=== PATIENT | female | born 1990 | race Caucasian/White ===

== ENCOUNTER 2016-07-07 09:00 | Inpatient (IN) | payer OTHER ==
[~2016-07-07] VITALS: Ht 182.8 cm; Wt 90.7 kg
[2016-07-07 00:45] VITALS: BP 102/51
[~2016-07-07 09:00] MED LIST: ADDERALL20 MG PO; ALBUTEROL0.09 MG/A2 IH; ALPRAZOLAM2 MG PO; ANAPROX DS550 MG PO; AUGMENTIN 875 M1 TAB PO; BIAXIN500 MG PO; BIRTH CONTROL1 EAC1 PO; CIPRODEX 0.3%-7.5 ML OT; CLARITIN10 MG PO; EES400 MG PO; FLAGYL500 MG PO; IBU-6600 MG PO; IBU-8800 MG PO; LEVAQUIN 500 MG PO; MACROBID100 M1 PO; MEDROL DOSEPAK4 MG PO; MOTRIN800 MG PO; NKHM; PRENATAL1 TA1 PO; PROVENTIL0.09 MG/AC IH; TRIMOX500 MG PO; VIBRAMYCIN100 MG PO; ZITHROMAX Z PA250 MG PO; ZOFRAN ODT4 MG SL; ZYRTEC-D 12HR 51 TER PO
[2016-07-07 09:03] VITALS: BP 129/75
[2016-07-07 09:46] LABS: HEMATOCRIT 40.6 % (37.0-47.0); HEMOGLOBIN 13.6 g/dl (12.0-16.0); MEAN CORPUSCULAR HGB 31.5 pg (27.0-31.0); MEAN CORPUSCULAR HGB CONC 33.5 g/dl (33.0-37.0); MEAN PLATELET VOLUME 9.9 fl (9.6-12.3); PLATELET COUNT AUTOMATED 248 10*3/uL (130-400); RED BLOOD COUNT 4.32 10*6/uL (4.10-5.10); RED CELL DISTRI WIDTH 11.9 % (0-14.5); WHITE BLOOD COUNT 18.7 10*3/uL (4.8-10.8)
[2016-07-07 09:57] LABS: BILIRUBIN 1+ (NEGATIVE); BLOOD 3+ (NEGATIVE); CLARITY CLOUDY (CLEAR); COLOR YELLOW (YELLOW); GLUCOSE NEGATIVE (NEGATIVE); KETONE NEGATIVE (NEGATIVE); LEUKO ESTERASE 2+ (NEGATIVE); NITRITE POSITIVE (NEGATIVE); PH 5.5 (5.0-9.0); PROTEIN 2+ (NEGATIVE)
[2016-07-07 10:02] LABS: ALBUMIN 3.5 gm/dl (3.1-4.5); ALKALINE PHOSPHATASE 62 U/L (45-117); BILIRUBIN, TOTAL 0.7 mg/dl (0.2-1.0); BUN 12 mg/dl (7-24); CARBON DIOXIDE 28 mmol/L (21-32); CHLORIDE 107 mmol/L (98-107); EST GLOM FILT AFRICAN AMERICAN > 60 ml/min; GLUCOSE 98 mg/dL (65-99); POTASSIUM 3.7 mmol/L (3.5-5.1); SGOT/AST 13 IU/L (3-35); SGPT/ALT 21 U/L (12-78); SODIUM 140 mmol/L (136-145); TOTAL PROTEIN 7.5 gm/dL (6.4-8.2)
[2016-07-07 10:03] LABS: LYMPHOCYTE # 1.7 10*3/uL (1.3-4.4); MONOCYTE # 0.4 10*3/uL (0.1-1.0); NEUTROPHIL # 16.6 10*3/uL (2.3-7.9); NEUTROPHILS 89 % (47-73); TOTAL CELLS COUNTED 100 #CELLS
[2016-07-07 10:04] LABS: PLATELET SUFFICIENCY NORMAL (NORMAL)
[2016-07-07 10:12] LABS: BACTERIA TRACE; URINE REFLEX COMMENT YES (NO); WBC 51-100 wbc/hpf (0-5)
[2016-07-07] MEDS ORDERED: ZOFRAN4 MG PO (12:31)
[2016-07-07] MEDS ORDERED: MACROBID100 M1 PO (12:31)
[2016-07-07 22:23] VITALS: BP 105/60
[2016-07-07 23:04] LABS: HEMOGLOBIN 12.5 g/dl (12.0-16.0); MEAN CELL VOLUME 94.9 fl (81.0-99.0); MEAN CORPUSCULAR HGB 32.1 pg (27.0-31.0); MEAN CORPUSCULAR HGB CONC 33.8 g/dl (33.0-37.0); MEAN PLATELET VOLUME 10.1 fl (9.6-12.3); PLATELET COUNT AUTOMATED 248 10*3/uL (130-400); RED CELL DISTRI WIDTH 12.1 % (0-14.5); WHITE BLOOD COUNT 16.1 10*3/uL (4.8-10.8)
[2016-07-07 23:19] LABS: ALBUMIN 3.5 gm/dl (3.1-4.5); ALKALINE PHOSPHATASE 55 U/L (45-117); BILIRUBIN, TOTAL 0.6 mg/dl (0.2-1.0); BUN 11 mg/dl (7-24); CARBON DIOXIDE 26 mmol/L (21-32); CHLORIDE 106 mmol/L (98-107); EST GLOM FILT AFRICAN AMERICAN > 60 ml/min; GLUCOSE 89 mg/dL (65-99); POTASSIUM 3.8 mmol/L (3.5-5.1); SGOT/AST 11 IU/L (3-35); SGPT/ALT 17 U/L (12-78); SODIUM 141 mmol/L (136-145); TOTAL PROTEIN 6.8 gm/dL (6.4-8.2)
[2016-07-07 23:28] LABS: EOSINOPHIL # 0.3 10*3/uL (0-0.4); EOSINOPHILS 2 % (1-4); LYMPHOCYTE # 3.2 10*3/uL (1.3-4.4); MONOCYTE # 0.8 10*3/uL (0.1-1.0); NEUTROPHIL # 11.8 10*3/uL (2.3-7.9); NEUTROPHILS 73 % (47-73); TOTAL CELLS COUNTED 100 #CELLS
[2016-07-07 23:29] LABS: PLATELET SUFFICIENCY NORMAL (NORMAL)
[2016-07-08 00:45] VITALS: BP 102/51
[2016-07-08 07:32] LABS: BASO % 0.2 % (0.0-1.0); EOS # 0.1 10*3/uL (0.0-0.4); HEMATOCRIT 34.4 % (37.0-47.0); HEMOGLOBIN 11.4 g/dl (12.0-16.0); IG # 0.1 10*3/uL (0.0-0.1); LYMPH # 1.9 10*3/uL (1.3-4.4); LYMPH % 15.5 % (27.0-41.0); MEAN CELL VOLUME 96.6 fl (81.0-99.0); MEAN CORPUSCULAR HGB CONC 33.1 g/dl (33.0-37.0); MEAN PLATELET VOLUME 10.6 fl (9.6-12.3); MONO # 1.1 10*3/uL (0.1-1.0); MONO % 8.9 % (3.0-9.0); PLATELET COUNT AUTOMATED 244 10*3/uL (130-400); RED BLOOD COUNT 3.56 10*6/uL (4.10-5.10); RED CELL DISTRI WIDTH 12.1 % (0-14.5); WHITE BLOOD COUNT 12.2 10*3/uL (4.8-10.8)
[2016-07-08 07:56] LABS: ALBUMIN 2.9 gm/dl (3.1-4.5); ALKALINE PHOSPHATASE 50 U/L (45-117); BILIRUBIN, TOTAL 0.7 mg/dl (0.2-1.0); BUN 11 mg/dl (7-24); CARBON DIOXIDE 26 mmol/L (21-32); CHLORIDE 111 mmol/L (98-107); CHOLESTEROL 92 mg/dL (<200); EST GLOM FILT AFRICAN AMERICAN > 60 ml/min; GLUCOSE 78 mg/dL (65-99); HDL CHOLESTEROL 27 mg/dl (40-60); LDL CHOLESTEROL 54 mg/dL (9-159); PHOSPHOROUS 3.1 mg/dL (2.5-4.9); POTASSIUM 3.6 mmol/L (3.5-5.1); SGOT/AST 10 IU/L (3-35); SGPT/ALT 17 U/L (12-78); SODIUM 142 mmol/L (136-145); TOTAL PROTEIN 6.1 gm/dL (6.4-8.2); TRIGLYCERIDES 53 mg/dl (<150); VLDL CHOLESTEROL 11 mg/dL (6-40)
[2016-07-08 08:00] VITALS: BP 102/58
[2016-07-08 08:01] LABS: PROTHROMBIN TIME 10.7 SECONDS (9.0-12.4)
[2016-07-08 08:07] LABS: FOLIC ACID 5.79 ng/mL (>5.38); VITAMIN D, 25-HYDROXY 10.4 ng/mL (30-100)
[2016-07-08 12:00] VITALS: BP 103/65
[2016-07-08 16:00] VITALS: BP 113/55
[2016-07-08 20:00] VITALS: BP 110/50
[2016-07-09] VITALS: BP 108/52
[2016-07-09 06:20] LABS: BASO % 0.4 % (0.0-1.0); EOS # 0.1 10*3/uL (0.0-0.4); EOS % 1.3 % (1.0-4.0); HEMATOCRIT 33.2 % (37.0-47.0); HEMOGLOBIN 10.9 g/dl (12.0-16.0); LYMPH # 2.7 10*3/uL (1.3-4.4); LYMPH % 31.6 % (27.0-41.0); MEAN CELL VOLUME 96.2 fl (81.0-99.0); MEAN CORPUSCULAR HGB 31.6 pg (27.0-31.0); MEAN CORPUSCULAR HGB CONC 32.8 g/dl (33.0-37.0); MEAN PLATELET VOLUME 10.8 fl (9.6-12.3); MONO # 0.9 10*3/uL (0.1-1.0); MONO % 10.5 % (3.0-9.0); NEUT # 4.7 10*3/uL (2.3-7.9); NEUT % 55.7 % (47.0-73.0); PLATELET COUNT AUTOMATED 228 10*3/uL (130-400); RED BLOOD COUNT 3.45 10*6/uL (4.10-5.10); RED CELL DISTRI WIDTH 12.1 % (0-14.5); WHITE BLOOD COUNT 8.5 10*3/uL (4.8-10.8)
[2016-07-09 06:34] LABS: BUN 8 mg/dl (7-24); CARBON DIOXIDE 23 mmol/L (21-32); CHLORIDE 113 mmol/L (98-107); EST GLOM FILT AFRICAN AMERICAN > 60 ml/min; GLUCOSE 84 mg/dL (65-99); POTASSIUM 3.9 mmol/L (3.5-5.1); SODIUM 142 mmol/L (136-145)
[2016-07-09 08:00] VITALS: BP 108/64
[2016-07-09 12:00] VITALS: BP 110/62
[2016-07-09 16:00] VITALS: BP 115/54
[2016-07-09 20:00] VITALS: BP 110/52
[2016-07-10] VITALS: BP 114/74
[2016-07-10 08:00] VITALS: BP 108/60
[2016-07-10 12:00] VITALS: BP 104/50
[2016-07-10] MEDS ORDERED: VITAMIN D5000 I3 PO (13:51)
[2016-07-10] MEDS ORDERED: AMINOPHYLLIN200 MG PO (13:51)
== END 2016-07-10 15:19 | disposition home or self-care (01) | DRG 872 ==
LOC: ED 09:00 → EDHOLD 12:26 → ED 12:43 → 5E 22:44 → EDHOLD 22:44 → 5E 23:29
PROVIDERS: Family Medicine; Internal Medicine; Nurse Practitioner Family
DX: A41.9 Sepsis, unspecified organism (principal); E44.0 Moderate protein-calorie malnutrition; N39.0 Urinary tract infection, site not specified; N12 Tubulo-interstitial nephritis, not specified as acute or chronic; F32.9 Major depressive disorder, single episode, unspecified; N73.9 Female pelvic inflammatory disease, unspecified; E86.0 Dehydration; R31.9 Hematuria, unspecified; E56.9 Vitamin deficiency, unspecified; Z68.27 Body mass index [BMI] 27.0-27.9, adult

== ENCOUNTER 2017-04-13 16:34 | Emergency (ER) | payer OTHER ==
[~2017-04-13] VITALS: Ht 185.4 cm; Wt 77.1 kg
[~2017-04-13 16:34] MED LIST changes: +AMINOPHYLLIN200 MG PO; +VITAMIN D5000 I3 PO; +ZOFRAN4 MG PO
[2017-04-13] MEDS ORDERED: NAPROSYN500 MG PO (16:55)
== END 2017-04-13 18:21 | disposition home or self-care (01) ==
LOC: ED 16:34
DX: S92.412A Displaced fracture of proximal phalanx of left great toe, initial encounter for closed fracture (principal); R03.0 Elevated blood-pressure reading, without diagnosis of hypertension; F17.200 Nicotine dependence, unspecified, uncomplicated; Z79.899 Other long term (current) drug therapy; W22.8XXA Striking against or struck by other objects, initial encounter; Y93.89 Activity, other specified; Y92.69 Other specified industrial and construction area as the place of occurrence of the external cause; Y99.9 Unspecified external cause status

== ENCOUNTER 2017-05-30 15:32 | Emergency (ER) | payer OTHER ==
[~2017-05-30] VITALS: Ht 185.4 cm; Wt 77.1 kg
[~2017-05-30 15:32] MED LIST changes: +NAPROSYN500 MG PO
[2017-05-30 16:28] LABS: BASO # 0.1 10*3/uL (0.0-0.1); BASO % 0.7 % (0.0-1.0); EOS # 0.3 10*3/uL (0.0-0.4); EOS % 1.8 % (1.0-4.0); HEMATOCRIT 44.1 % (37.0-47.0); HEMOGLOBIN 14.6 g/dl (12.0-16.0); LYMPH # 2.5 10*3/uL (1.3-4.4); LYMPH % 16.5 % (27.0-41.0); MEAN CELL VOLUME 95.9 fl (81.0-99.0); MEAN CORPUSCULAR HGB 31.7 pg (27.0-31.0); MEAN CORPUSCULAR HGB CONC 33.1 g/dl (33.0-37.0); MEAN PLATELET VOLUME 9.6 fl (9.6-12.3); MONO # 0.7 10*3/uL (0.1-1.0); MONO % 4.7 % (3.0-9.0); NEUT # 11.6 10*3/uL (2.3-7.9); NEUT % 75.9 % (47.0-73.0); PLATELET COUNT AUTOMATED 318 10*3/uL (130-400); RED CELL DISTRI WIDTH 12.7 % (0-14.5); WHITE BLOOD COUNT 15.3 10*3/uL (4.8-10.8)
[2017-05-30 16:46] LABS: ALBUMIN 4.3 gm/dl (3.1-4.5); ALKALINE PHOSPHATASE 70 U/L (45-117); BUN 15 mg/dl (7-24); CHLORIDE 110 mmol/L (98-107); CREATININE 0.97 mg/dL (0.55-1.02); POTASSIUM 4.2 mmol/L (3.5-5.1); SGOT/AST 13 IU/L (3-35); SGPT/ALT 22 U/L (12-78); SODIUM 142 mmol/L (136-145); TOTAL PROTEIN 7.3 gm/dL (6.4-8.2)
== END 2017-05-30 18:10 | disposition home or self-care (01) ==
LOC: ED 15:32
PROVIDERS: Nurse Practitioner
DX: R51 Headache (principal); Y04.0XXA Assault by unarmed brawl or fight, initial encounter; Y93.89 Activity, other specified; Y92.89 Other specified places as the place of occurrence of the external cause; Y99.8 Other external cause status

== ENCOUNTER 2017-07-19 11:08 | Emergency (ER) | payer OTHER ==
[~2017-07-19] VITALS: Ht 185.4 cm; Wt 79.4 kg
[2017-07-19 11:27] LABS: BILIRUBIN 2+ (NEGATIVE); BLOOD 3+ (NEGATIVE); CLARITY SL CLOUDY (CLEAR); COLOR YELLOW (YELLOW); GLUCOSE NEGATIVE (NEGATIVE); KETONE 3+ (NEGATIVE); LEUKO ESTERASE 1+ (NEGATIVE); NITRITE POSITIVE (NEGATIVE); PH 5.5 (5.0-9.0); SPECIFIC GRAVITY >= 1.030 (1.005-1.030)
[2017-07-19 11:55] LABS: HEMATOCRIT 44.8 % (37.0-47.0); MEAN CELL VOLUME 97.6 fl (81.0-99.0); MEAN CORPUSCULAR HGB 32.7 pg (27.0-31.0); MEAN CORPUSCULAR HGB CONC 33.5 g/dl (33.0-37.0); MEAN PLATELET VOLUME 10.2 fl (9.6-12.3); PLATELET COUNT AUTOMATED 242 10*3/uL (130-400); RED BLOOD COUNT 4.59 10*6/uL (4.10-5.10); RED CELL DISTRI WIDTH 12.3 % (0-14.5)
[2017-07-19 11:59] LABS: BACTERIA 3+; EPITHELIAL CELLS 20-30; MUCOUS 2+; RBC 31-40 rbc/hpf (0-2); WBC 51-100 wbc/hpf (0-5)
[2017-07-19 12:09] LABS: ALBUMIN 4.2 gm/dl (3.1-4.5); ALKALINE PHOSPHATASE 71 U/L (45-117); BUN 10 mg/dl (7-24); CHLORIDE 102 mmol/L (98-107); CREATININE 0.98 mg/dL (0.55-1.02); POTASSIUM 4.2 mmol/L (3.5-5.1); SGOT/AST 7 IU/L (3-35); SGPT/ALT 16 U/L (12-78); SODIUM 137 mmol/L (136-145); TOTAL PROTEIN 7.7 gm/dL (6.4-8.2)
[2017-07-19 12:10] LABS: TROPONIN I < 0.015 ng/ml (<0.045)
[2017-07-19 12:25] LABS: PLATELET SUFFICIENCY NORMAL (NORMAL); TOTAL CELLS COUNTED 100 #CELLS
[2017-07-19] MEDS ORDERED: SEPTDS PO (14:39)
== END 2017-07-19 14:49 | disposition left against medical advice (07) ==
LOC: ED 11:08
PROVIDERS: Nurse Practitioner Family
DX: A41.9 Sepsis, unspecified organism (principal); N12 Tubulo-interstitial nephritis, not specified as acute or chronic; F17.200 Nicotine dependence, unspecified, uncomplicated

== ENCOUNTER 2017-11-25 19:17 | Emergency (ER) | payer OTHER ==
[~2017-11-25] VITALS: Ht 182.8 cm; Wt 63.5 kg
[~2017-11-25 19:17] MED LIST changes: +SEPTDS PO
[2017-11-25 20:19] LABS: BILIRUBIN NEGATIVE (NEGATIVE); BLOOD NEGATIVE (NEGATIVE); CLARITY SL CLOUDY (CLEAR); COLOR YELLOW (YELLOW); GLUCOSE NEGATIVE (NEGATIVE); KETONE TRACE (NEGATIVE); LEUKO ESTERASE TRACE (NEGATIVE); NITRITE NEGATIVE (NEGATIVE); PH 5.5 (5.0-9.0); SPECIFIC GRAVITY >= 1.030 (1.005-1.030)
[2017-11-25 20:29] LABS: BACTERIA 1+; EPITHELIAL CELLS TNTC; MUCOUS 1+; RBC 0-2 rbc/hpf (0-2)
[2017-11-25 20:30] LABS: CALCIUM OXALATE CRYSTALS 1+
[2017-11-25] MEDS ORDERED: LEVAQUIN750 M1 PO (22:28)
== END 2017-11-25 23:32 | disposition home or self-care (01) ==
LOC: ED 19:17
PROVIDERS: Emergency Medicine
DX: J18.9 Pneumonia, unspecified organism (principal)

== ENCOUNTER 2018-10-09 18:09 | Emergency (ER) | payer OTHER ==
[~2018-10-09] VITALS: Ht 185.4 cm; Wt 68.0 kg
[~2018-10-09 18:09] MED LIST changes: +LEVAQUIN750 M1 PO
== END 2018-10-09 19:10 | disposition home or self-care (01) ==
LOC: ED 18:09
DX: S61.512A Laceration without foreign body of left wrist, initial encounter (principal); F17.200 Nicotine dependence, unspecified, uncomplicated; Z88.7 Allergy status to serum and vaccine; W26.8XXA Contact with other sharp object(s), not elsewhere classified, initial encounter; Y93.89 Activity, other specified; Y92.69 Other specified industrial and construction area as the place of occurrence of the external cause; Y99.8 Other external cause status

== ENCOUNTER 2020-08-04 13:42 | Emergency (ER) | payer OTHER ==
[~2020-08-04] VITALS: Ht 185.4 cm; Wt 81.6 kg
== END 2020-08-04 13:48 | disposition left against medical advice (07) ==
LOC: ED 13:42
DX: S61.012A Laceration without foreign body of left thumb without damage to nail, initial encounter (principal); Z53.29 Procedure and treatment not carried out because of patient's decision for other reasons; Z88.0 Allergy status to penicillin; X58.XXXA Exposure to other specified factors, initial encounter; Y93.89 Activity, other specified; Y92.89 Other specified places as the place of occurrence of the external cause; Y99.8 Other external cause status

== ENCOUNTER 2021-03-23 17:01 | Emergency (ER) | payer OTHER ==
[~2021-03-23] VITALS: Ht 175.2 cm; Wt 108.9 kg
== END 2021-03-23 17:10 | disposition left against medical advice (07) ==
LOC: ED 17:01
DX: T42.4X1A Poisoning by benzodiazepines, accidental (unintentional), initial encounter (principal); Z88.7 Allergy status to serum and vaccine; Z88.0 Allergy status to penicillin; Y92.89 Other specified places as the place of occurrence of the external cause